=== PATIENT | female | born 1955 | race Caucasian/White ===

== ENCOUNTER 2024-07-29 12:23 | Emergency (ER) | payer MEDICARE, SELFPAY ==
[2024-07-29 12:53] VITALS: BP 146/65; PULSE 76; RESP 16; TEMP 37; O2SAT 98; BMI 35.4
--- NOTE | 2024-07-29 12:54 | ED.GENADULT ---
HPI - General Adult General Chief complaint: Skin/Abscess/Foreign Body Stated complaint: R finger lac Time Seen by Provider: 07/29/24 13:00 Source: patient Mode of arrival: ambulatory Limitations: no limitations History of Present Illness ED Provider: Maikol ZUÑIGA narrative: Patient is a 69-year-old female currently on Eliquis for DVT presenting to the emergency department with complaint of laceration to palmar side of right index finger. Patient states that she was putting up [place] decorations prior to arrival and dropped a snow globe. When she went to pick it up, she accidentally cut her finger. Unsure last Tdap. She is right-hand dominant. Bleeding currently controlled. MD complaint: laceration Onset (ago): minute(s) Treatments prior to arrival: other (bandage) Related Data Allergies Allergy/AdvReac Type Severity Reaction Status Date / Time Latex, Natural Rubber Allergy Unknown UNKNOWN Verified 07/29/24 12:56 [LATEX, NATURAL RUBBER] sulfamethoxazole Allergy Unknown UNKNOWN Verified 07/29/24 12:56 [From BACTRIM] trimethoprim [From BACTRIM] Allergy Unknown UNKNOWN Verified 07/29/24 12:56 Review of Systems Review of Systems: As per HPI Yes all other systems are reviewed and are negative Constitutional: Constitutional: Reports as per HPI [facility] Social History Social History Advance Directives: No Advance Directives Information Provided: Yes Physical Exam ED Vital Signs: Vital Signs - 24 hr 07/29/24 12:53 Temperature 98.6 F Pulse Rate 76 Respiratory Rate 16 Blood Pressure 146/65 H Pulse Oximetry 98 Oxygen Delivery Method Room Air BMI result Body Mass Index 35.4 Vital signs have been reviewed and appear to be correct. Blood pressure slightly elevated. Heart rate normal. Respiratory rate normal. Temperature normal. Oxygen saturation normal. Const General: cooperative, healthy appearing and no acute distress Orientation/consciousness: oriented to person, oriented to place, oriented to time and patient oriented x3 Limitations: no limitations HENMT Head: Yes normocephalic and Yes atraumatic Ears: external ears normal General nose exam: Normal external nose present Face and sinus: Yes face symmetric Mouth: oropharynx normal and moist mucous membranes Throat: Yes uvula midline Eyes Pupils: Equal, round and reactive pupils present Neck Neck: Yes normal visual inspection and Yes supple Resp Effort & Inspection: normal respiratory effort and able to speak in complete sentences Auscultation: clear to auscultation bilaterally Cardio Rate: regular rate Rhythm: regular rhythm Heart sounds: S1 normal heart sound present and S2 normal heart sound present GI Palpation (GI): Soft to palpation and nontender Auscultation: normoactive bowel sounds General: Yes no CVA tenderness Back/Spine/Pelvis Back: no CVA tenderness Skin General skin exam: elasticity normal and turgor normal Neuro General: oriented to person, oriented to place, oriented to time, patient oriented x3, moves all extremities, no focal motor deficits and CN's II-XI intact bilaterally Cranial nerves: Yes Equal, round and reactive pupils present Cognition (Neuro): normal cognition Extrem General: Yes full ROM, Yes no pedal edema and Yes no calf tenderness Right upper extremity: Extremity exam: right hand Details: laceration 2nd digit palmar aspect proximal Details: L-shaped, involving subcutaneous tissue, with motor nerve function intact and with sensation intact Hand/finger images: 1. V-shaped laceration Psych Mental Status: mental status grossly normal Affect: normal affect Thought process: Normal thought process present Course Course Course Narrative: This is a rapid medical exam performed by Jacob Lassiter NP: Additional HPI, ROS, PE not included below will be deferred to primary provider. 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 Unsure last Tdap. Will require sutures. Plan: Tdap Medications Administered Discontinued Medications Generic Name Dose Route Start Last Admin Trade Name Freq PRN Reason Stop Dose Admin Diphtheria/Tetanus/Acell Pertussis 0.5 ml 07/29/24 12:55 07/29/24 13:10 Diphth,Pertus(Acell),Tet Adult 0.5 Ml Syringe IM 07/29/24 12:56 0.5 ml .ONCE ONE Administration Procedures Laceration Laceration 1: Site: hand Side (If applicable): right Size (cm): 2 Description: flap Depth: simple, single layer Local Anesthetic: lidocaine 1% Amount of anesthesia used (mL): 1 Pre-repair: wound explored, irrigated extensively and deep structures intact Skin layer closed with: other (prolene) Size (cm): 5-0 Number of sutures: 5 Technique: simple, interrupted Medical Decision Making Medical Decision Making MDM Narrative: Patient is a 69-year-old female currently on Eliquis for DVT presenting to the emergency department with complaint of laceration to palmar side of right index finger. On exam patient is awake, A+Ox3, VS WNL, afebrile, normal neurological exam without focal deficits, physical exam findings as above. Given reported symptoms and physical exam findings, initial differential includes laceration, possible foreign body, tendon injury. Tdap updated. Laceration repaired as per procedure note. No evidence of retained foreign body or tendon injury. Wound care instructions discussed bedside as well as return precautions. Return for suture removal in 7-10 days. Patient verbalized understanding of and agreement with plan. Differential Diagnosis Differential Diagnoses: The differential diagnosis associated with the presentation includes As per MDM. External Record Review External record reviewed: Inpatient record, Office record and Outpatient record Discharge Plan Discharge Clinical Impression: Laceration of finger of right hand Patient Disposition: Home, Self-Care Instructions: Care For Your Stitches (DC), Finger Laceration (ED), Stitches Removal (ED) Additional Instructions: You have been evaluated in the emergency department today for a laceration to your right index finger. Your laceration was repaired in the emergency department with #5 sutures. Please keep the area surrounding the laceration clean and dry and keep dressing in place for the next 24 hours. After that please change the dressing and assess the wound daily. Do not submerge the wound in water until the stitches has been removed and the wound has fully healed (no washing dishes, swimming, hot tubs, etc. and ESPECIALLY no outdoor water). Keep the area out of direct sunlight for the next 6 months to help prevent scarring. You should have the sutures removed in 7-10 days. If you develop fever, redness, swelling at the site of your laceration, or thick yellow drainage please come back to the ER for a wound check. Print Language: Syriac
[2024-07-29] MEDS: Diphth,Pertus(ACell),Tet Adult 0.5 ML SYRINGE IM (13:10)
[2024-07-29 14:21] VITALS: BP 146/65; PULSE 76; RESP 16; TEMP 37; O2SAT 98
[2024-07-29] MEDS: Bacitracin Oint 0.9 GM PACKET 1 APPL TOPICAL (14:21)
[2024-07-29] MEDS: Lidocaine HCl 1 % MPF 5 ML VIAL INFILTRATI (14:21)
--- OUTSIDE RECORDS SUMMARY | 2024-07-30 02:02 | XMS_ITS | Continuity of Care Document ---
Author Organization [facility] Address [address] [place] [address] Phone Care Team Providers Care Production Finisher Name Role Phone Anjel DANIEL, RVT, ROBB, Roberto Unavailable U navailable Allergies, Adverse Reactions, Alerts Substance Reaction Status Criticality trimethoprim Active No Information sulfamethoxazole Active No Informat ion Medications Medication Instructions Dosage Effective Dates (start - stop) Status Comments Eliquis 5 mg tablet take 1 tablet by ora l route 2 times every day 5 MG - Active levothyroxine 25 mcg tablet - Active Procedures Procedure Date Office/Outpt E&M Established 15 Mins- CT & [place] [facility] CVR Reveal Knee High Duplex Scan-extrem Veins; Uni/ CT & [place] N Offic Cons New/estab Mod-hi 60- CT & [place] [facility] CVR Reveal Knee High Duplex Scan-extrem Veins; Uni/ CT & [place] O Advance Directives Directive Yes / No Effective Date File Name Other Directive No N/A N/A WARNING:The information contained in this section is historical and is provided for information only and does not constitute a legal document or any assurance that the information is still accurate. Please verify the information with the castro of the legal document before using it for clinical purposes. Encounters Encounter Description Practice Location Reason(s) For Visit Diagnoses Date Provider Providers Copied on Encounter Office/Outpt E&M Established 15 Mins- [place] & [place] [facility], [address] [place] [address] [address], [id number], [place] tel:[phone] CVR - [place] Acute embolism and thrombosis of left tibial vein 4 Anjel DANIEL RVT, ROBB Mejia. [address] [place] [address], [address], [place], [id number] , [place]. tel:[phone] Referring Provider: Angely Orona, [address] [place], [address]. tel:[phone] [facility], [address] [place] [address] [address], [id number], [place] tel:[phone] CVR - [place] - [place] Chronic venous hypertension (idiopathic) without complications of bilateral lower extremity 4 Anjel DANIEL RVT, ROBB Mejia. [address] [place] [address], [place], [id number] , [place]. [phone] [facility], [address] [place] [address] [address], [id number], [place] tel:[phone] [place] Pain in left leg 4 Anjel DANIEL RVT, ROBB Mejia. [address] [place] [address], [facility] [address], [place], [id number] , [place]. [phone] Referring Provider: Angely Orona, [place], [address]. tel:[phone] [facility], [address] [place] [address] [address], [id number], [place] tel:[phone] CVR [place] No Information 4 Juan Pablo Franklin . [address] [place] [address], [facility] [address], [facility] [place] [place], [id number] , [place]. tel:[phone] Offic Cons New/estab Mod-hi 60- [place] & [place] [facility], [address] [place] [address] Dr [address], [place], [id number], [place] tel:[phone] CVR - [place] Acute embolism and thrombosis of unspecified deep veins of left lower extremityPruri tus, unspecified 4 Anjel DANIEL, JOCELYNE, ROBB Mejia. [address], [address], [place], [id number] , [place]. tel:[phone] Referring Provider: Angely Orona, [address] [place], [address]. tel:[phone] [facility], [address] [place] [address] [address], [place], [id number], [place] tel:[phone] CVR [place] Pain in left leg 4 Anjel DANIEL RVT, ROBB Mejia. [facility] [facility], [address], [place], [id number] , [place]. tel:[phone] Referring Provider: Angely Orona, [address] [place], [address]. tel:[phone] Family History Family Member Type Diagnosis Age At Onset No Information Payers Payer name Insurance type Covered alliance party ID Jyotsna hogue(s) [employer] CI [id number] Social History Type Description Quantity Date Captured Comments Alcohol Use Details No Caffeine Use Details Unknown Tobacco Use Status Never smoked tobacco 2023 Smoking Status Never smoker Non-Smoking Tobacco Use Details : No Details Available : No Details Available Sex Female Chief Complaint And Reason For Visit No Information Reason For Referral Reason For Referral No Information Plan Of Treatment Date Type Action Status Goal Diet education completed Referral Ordered: Weight management: Referral to physician timeframe: 3 Months (related to Body mass index (BMI) 37.0-37.9, adult) ordered Appointment Nikki Herring BOOKED Appointment Nikki Herring BOOKED History Of Present Illness Encounter Date Complaint History Of Prese nt Illness No Information Functional Status Date Functional Assessmen t No Information Instructions Date Instruction Additional Infor mation Diet education Related to Body mass index (BMI) 37.0-37.9, adult Giving Encouragement to exercise Related to Body mass index (BMI) 37.0-37.9, adult Lifestyle education Related to B ely mass index (BMI) 37.0-37.9, adult Pre and post instruc tions reviewed and provided Related to Acute embolism and thrombosis of unspecified deep veins of left lower extremity Compression stocking usage as conservative measure Related to Acute embolism and thrombosis of unspecified deep veins of left lower extremity Assessments Type Assessment Date assessment Acute embolism and thrombosis of left tibial vein Patient Care Teams Name Effective Dates (start - stop) Status Members No Information
--- OUTSIDE RECORDS SUMMARY | 2024-07-30 02:22 | XMS_ITS | Continuity of Care Document ---
Author Organization [facility] Address [address] [place] [address] Phone Care Team Providers Care Auto Locator Name Role Phone Anjel DANIEL, RVT, ROBB, [...] Mins- [place] & [place] [facility], [address] [place] [address] [address], [id number], [place] tel:[phone] CVR [place] Acute embolism and thrombosis of left tibial vein 4 Anjel DANIEL RVT, ROBB Mejia. [address] [place] [address], [address], [place], [id number] , [place]. tel:[phone] Referring Provider: Angely Orona, [address] [place], [address]. tel:[phone] [facility], [address] [place] [address] [address], [id number], [place] tel:[phone] CVR - [place] - [place] Chronic venous hypertension (idiopathic) without complications of bilateral lower extremity 4 Anjel DANIEL RVT, ROBB Mejia. [address] [place] [address], [place], [id number] , [place]. [phone] [facility], [address] [place] [address] [address], [id number], [place] tel:[phone] CVR - [place] Pain in left leg 4 Anjel DANIEL RVT, ROBB Mejia. [address] [place] [address], [facility] [address], [place], [id number] , [place]. [phone] Referring Provider: Angely Orona, [place], [address]. tel:[phone] [facility], [address] [place] [address] [address], [id number], [place] tel:[phone] CVR - [place] No Information 4 Juan Pablo Franklin . [address] [place] [address], [facility] [address], [facility] [place], [id number] , [place]. tel:[phone] Offic Cons New/estab Mod-hi 60- [place] & [place] [facility], [address] [place] [address] Dr [address], [place], [id number], [place] tel:[phone] CVR - [place] Acute embolism and thrombosis of unspecified deep veins of left lower extremityPruri tus, unspecified 4 Anjel DANIEL, JOCELYNE, ROBB Mejia. [address] [facility], [address], [place], [id number] , [place]. tel:[phone] Referring Provider: Angely Orona, [address] [place], [address]. tel:[phone] [facility], [address] [place] [address] [address], [place], [id number], [place] tel:[phone] CVR - [place] Pain in left leg 4 Anjel DANIEL RVT, ROBB Mejia. [facility], [address], [place], [id number] , [place]. tel:[phone] Referring Provider: Angely Orona, [address] [place], [address]. tel:[phone] Family History Family Member Type Diagnosis Age At Onset No Information Payers Payer name Insurance type Covered alliance party ID Jyostna hogue(s) [employer] CI [id number] Social History Type Description Quantity Date Captured [...]
== END 2024-07-29 14:21 | disposition home or self-care (01) ==
PROVIDERS: Emergency Provider Emergency Medicine
DX: S61.210A Laceration without foreign body of right index finger without damage to nail, initial encounter (principal); W25.XXXA Contact with sharp glass, initial encounter; Y93.89 Activity, other specified; Y92.039 Unspecified place in apartment as the place of occurrence of the external cause; Y99.9 Unspecified external cause status; Z23 Encounter for immunization
CPT/HCPCS: 12001; 90471; 90715; 99282; 99284; J2003